=== PATIENT | male | born 1965 | race Hispanic/Latino ===

== ENCOUNTER 2025-01-31 11:12 | Emergency (ER) | payer BC ==
[~2025-01-31] VITALS: Ht 162.6 cm; Wt 72.6 kg
[2025-01-31] MEDS: LIDOCAINE HCL 1% 20 ML VIAL INJ SCH (11:24)
[2025-01-31 11:44] VITALS: BP 140/85; PULSE 70; RESP 16; TEMP 98.1; O2SAT 98
--- NOTE | 2025-01-31 11:44 | HMCIMG ---
EXAM: CR right Forearm, 2 View. CLINICAL HISTORY: r/o fb COMPARISON: None provided. FINDINGS: BONES: No acute fracture or aggressive appearing osseous lesion. JOINTS: No dislocation. The joint spaces are normal. SOFT TISSUES: Soft tissue edema at the volar aspect of the mid forearm. There is a punctate radiopacity overlying the volar soft tissues (approximately 1.4 cm deep to the skin) that may reflect a foreign body. IMPRESSION: 1. Possible foreign body in the volar soft tissues, approximately 1.4 cm deep to the skin. 2. Soft tissue edema at the volar aspect of the mid forearm. 3. No acute osseous injury. /[place]
[2025-01-31] MEDS: HYDROcodone/APAP 5/325 1 TAB TABLET PO ONE (11:53)
--- NOTE | 2025-01-31 12:14 | ERN ---
General Chief Complaint: Upper Extremity Pain/Injury Stated Complaint: RT ARM INJURY Time Seen by MD: 11:15 Time Seen by Midlevel: 11:15 Source: patient History of Present Illness Initial Comments Patient is a 59-year-old male presenting to the ER with a laceration to his right forearm Allergies: Coded Allergies: No Known Allergies (Unverified Allergy, Unknown, 01/31/25) Home Meds Active Scripts Amoxicillin/Potassium Clav (Amox Tr-K Clv 875-125 mg Tab) 875 Mg-125 Mg Tablet, 1 EACH PO BID for 5 Days, #10 TAB 0 Refills Prov:PHUC JOHNSON 01/31/25 Past Medical History Past Medical History: No Pertinent History Past Surgical History: None ROS Dictation CONSTITUTIONAL: Negative except for HPI HEAD/FACE: Negative except for HPI EENT: Negative except for HPI RESPIRATORY: Negative except for HPI GASTROINTESTINAL/ABDOMINAL: Negative except for HPI GENITOURINARY: Negative except for HPI MUSCULOSKELETAL: Negative except for HPI INTEGUMENTARY: Negative except for HPI NEUROLOGICAL/PSYCH: Negative except for HPI HEMATOLOGIC/LYMPHATIC: Negative except for HPI All Systems Negative, Except as noted above. 13 point review of systems assessed and all negative except for above. Physical Exam Physical Exam Dictation Vital Signs reviewed General Appearance: Alert, oriented x 3, no acute distress, well developed, nourished. Head and Face: non-traumatic. Eyes: PERRL, pink conjunctivas, eyelid no trauma, anterior chamber with arcus senilis. Ears: Pinnas intact and no signs of trauma or erythema ear canals clear and no discharge TM no erythema Nose: No discharge, no bleeding. Oropharynx: Mouth normal, tongue pink, pharynx clear,no erythema, tonsils no exudates, no abscesses noted, mucous membrane moist Neck: Supple, non-tender, no thyromegaly, no masses, no JVD, no bruits Breast:Deferred Chest:No tenderness, no crepitus, no paradoxical movement, no retractions Lungs:Clear, well-ventilated, symmetric, no rales, no wheezing, no rhonchi, no stridor, good breath sounds bilaterally Heart: Regular rate, regular rhythm, no murmur, no gallops Vascular: no peripheral edema, Abdomen: Soft, positive bowel sounds, nondistended, no guarding, nontender, no rebound, no masses no hepatomegaly, no splenomegaly, no Simms's sign, no hernias. Rectal: Deferred Genital: Deferred Neurological: Normal speech, motor function intact, sensory function intact Musculoskeletal: Neck nontender, full range of motion, back nontender, full range of motion, Extremities: nontender, full range of motion Skin: Color pink, dry, no turgor, no rash, no lacerations, no abrasions, no contusions. Lymphatic: Deferred MDM MDM: Differential diagnosis: Laceration, contusion, fracture There are no social concerns with this patient. Prescription drug management Prescriptions will include: Augmentin Medical management and examination interpretation discussions were had by me with other qualified healthcare professionals as indicated for the patient's care. ED Course Orders Procedure Category Date Status Time Tetanus,Diphtheria PHA 01/31/25 Complete Tox [Adult] (Diphther 11:30 Lidocaine Hcl 1% 20ml PHA 01/31/25 In Process Vial (Lidocaine Hc 11:30 Laceration Tray Set CPOE 01/31/25 Transmitted Up (Er) 11:19 Forearm 2vws Rt RAD 01/31/25 Resulted 11:19 Hydrocodone/Apap PHA 01/31/25 Complete 5/325 ([place] 5/325mg) 12:00 Current Medications Medications (Trade) Dose Ordered Sig/Avni Route PRN Reason Start Time Stop Time Status Last Admin Dose Admin Acetaminophen/ Hydrocodone Bitart (NORco 5/325MG) 1 tab ONCE ONCE PO 01/31/25 12:00 01/31/25 12:01 DC 01/31/25 11:53 Lidocaine HCl (Lidocaine HCl 1% 20ml Vial) ONCE INJ 01/31/25 11:30 03/02/25 11:29 01/31/25 11:24 Tetanus/ Diphtheria Toxoids Adsorbed (DiphthERIA-teTANUS TOXOID [ADULT]/ DECAVAC) 0.5 ml ONCE ONCE IM 01/31/25 11:30 01/31/25 11:31 DC 01/31/25 11:26 Vital Signs Date Time Temp Pulse Resp B/P (MAP) Pulse Ox O2 Delivery O2 Flow Rate FiO2 01/31/25 11:44 98.1 70 16 140/85 98 Room Air* 0 21 01/31/25 11:14 98.4 74 20 140/89 99 Room Air DX & DISP Disposition: Discharge Departure Impression: Primary Impression: Laceration of forearm, right Condition: Stable Scripts Amoxicillin/Potassium Clav (Amox Tr-K Clv 875-125 mg Tab) 875 Mg-125 Mg Tablet 1 EACH PO BID for 5 Days, #10 TAB 0 Refills Prov: PHUC JOHNSON 01/31/25 Additional Instructions: You had three sutures placed today. These will need to be removed in 7-10 days. Please keep area clean and dry. If you notice any signs infection please report to the ER further evaluation. Follow up primary care doctor in two three days for repeat evaluation. You may return to the ER or follow up your PCP in 7-10 days for suture removal. Please take your antibiotics as prescribed Referrals: NONE (PCP) Time of Disposition: 12:20 I have reviewed the case, and I agree with, Diagnosis and Plan I performed the substantive portion of the visit. I have reviewed and personally made and approve the management plan that is documented in the note by myself or the PATIENCE. I acknowledge for responsibility for the patient's management plan. PHUC JOHNSON Jan 31, 2025 12:14
[2025-01-31] MEDS ORDERED: AMOX1TAB16 PO (12:21)
--- NOTE | 2025-01-31 12:30 | NUR ---
3 SUTURES PLACED WOUND CLEAN DRY AND INTACT BANDACED WITH NONAD DRESSING AND WRAPPED WITH KERLIX PT INSTRUCTED SUTURES TO BE REMOVED 7-10 DAYS
== END 2025-01-31 12:38 | disposition home or self-care (01) ==
LOC: EDH 11:12
DX: S51.811A Laceration without foreign body of right forearm, initial encounter (principal); W22.8XXA Striking against or struck by other objects, initial encounter; Y93.89 Activity, other specified; Y92.89 Other specified places as the place of occurrence of the external cause; Y99.8 Other external cause status
CPT/HCPCS: 12002; 73090; 90471; 90714; 99284